=== PATIENT | female | born 1970 | race Caucasian/White ===

== ENCOUNTER 2020-02-20 12:19 | Emergency (ER) | payer MEDICAID ==
[~2020-02-20] VITALS: Ht 170.2 cm; Wt 64.4 kg
[2020-02-20 12:28] VITALS: Ht 170.2 cm; Wt 64.4 kg
[2020-02-20 13:08] LABS: BASOPHIL % 1.1 % (0-2); PLATELET COUNT 209 x10^3mcL (130-400); RED CELL DISTRIBUTION WIDTH 14.5 % (11.5-14.5)
[2020-02-20 13:18] LABS: CARBON DIOXIDE 27.8 mmol/L (21-32); CHLORIDE SERUM 97 mmol/L (98-107); GFR1 > 60 mL/min; GLUCOSE SERUM 93 mg/dL (74-106); POTASSIUM SERUM 3.6 mmol/L (3.5-5.1); SODIUM SERUM 132 mmol/L (136-145)
[2020-02-20 13:22] LABS: ALBUMIN 4.3 g/dL (3.4-5.0); ALKALINE PHOSPHATASE 62 U/L (46-116); ALT/SGPT 33 U/L (14-59); AST/SGOT 25 U/L (15-37); BILIRUBIN TOTAL 1.38 mg/dL (0.20-1.00); CHOLESTEROL 159 mg/dL (<200)
[2020-02-20 14:44] VITALS: BP 115/68
== END 2020-02-20 14:44 | disposition home or self-care (01) ==
LOC: ED 12:19
PROVIDERS: Specialist
DX: R20.2 Paresthesia of skin (principal); M06.9 Rheumatoid arthritis, unspecified
CPT/HCPCS: G0480